=== PATIENT | male | born 1935 | race Caucasian/White ===

== ENCOUNTER → 2021-08-12 | Outpatient (CLI) | payer MEDICARE, OTHER ==
--- NOTE | 2021-08-12 12:24 | DIREP ---
PROCEDURE:XR ABDOMEN 2 VIEWS COMPARISON:None. INDICATIONS:K59.00 CONSTIPATION TECHNIQUE:Flat and upright views of the abdomen are provided. FINDINGS: BOWEL GAS PATTERN:No small bowel dilatation. CALCIFICATIONS:Bilateral flank calcifications. The largest on the right measures 1.5 x 1.4 cm. The largest on the left measures 1.5 x 0.9 cm. A 1.5 x 0.8 cm calcification is identified to the right of midline at the L4 vertebral level. Ureteral calculus could be considered. LUNG BASES:Clear. BONES:Lumbar dextroscoliosis. Degenerative change without evidence of acute osseus abnormality. OTHER:No additional findings. CONCLUSION: 1. Nonobstructive bowel-gas pattern. 2. Bilateral flank and lower abdominal calcifications, could indicate renal and ureteral calculi. Cross-sectional imaging is recommended for further characterization. Dictated by: Andrey Domínguez MD on 08/12/2021 at 11:21 AM
== END | disposition home or self-care (01) ==
LOC: RAD 11:02
PROVIDERS: ATTEND Nurse Practitioner Family
DX: K59.00 Constipation, unspecified (principal); M41.86 Other forms of scoliosis, lumbar region; M47.819 Spondylosis without myelopathy or radiculopathy, site unspecified
CPT/HCPCS: 74019

== ENCOUNTER → 2024-04-22 | Outpatient (CLI) | payer MEDICARE, OTHER ==
[2024-04-22 10:44] LABS: BASOPHIL % 0.1 % (0.2-1.2); EOSINOPHIL # 0.2 10^3/uL (0.0-0.2); HEMATOCRIT(ML) 48.7 % (37.0-53.0); HEMOGLOBIN 16.4 g/dL (13.9-16.3); LYMPHOCYTES # 1.86 10^3/uL1 (1.0-4.8); LYMPHOCYTES % 24.3 % (24.0-44.0); MEAN CORP HGB CONCENTRATION 33.7 g/dL (33-36.5); MEAN CORP VOLUME 92.1 fL (78-100); MONOCYTES # 0.6 10^3/uL (0.3-0.8); MONOCYTES % 8.2 % (5.0-12.0); NEUTROPHILS % 65.1 % (41.0-85.0); PLATELET COUNT 208 10^3/uL (150-400); RED BLOOD CELL 5.29 10^6/uL (4.50-5.90); RED CELL DISTRIBUTION WIDTH 12.9 % (11.5-14.5); WHITE BLOOD CELL 7.7 10^3/uL (4.5-11.0)
[2024-04-22 10:45] LABS: +ADD MANUAL DIFF(NO CHRG) NO
[2024-04-22 11:03] LABS: ALBUMIN(ML) 3.8 g/dL (3.4-5.0); ALBUMIN/GLOBULIN RATIO 1.085; CALCIUM 10.5 mg/dL (8.4-10.5); CARBON DIOXIDE 25.2 mmol/L (20.0-32); CREATININE SERUM 1.62 mg/dL (0.59-1.40); EST GFR, NON-AA 40.3 (>/=60); POTASSIUM 4.2 mmol/L (3.6-5.2)
[2024-04-22 11:12] LABS: BUN/CREATININE RATIO 12.96 (10.0-20.0)
== END | disposition home or self-care (01) ==
LOC: LAB 10:10
PROVIDERS: ATTEND Nurse Practitioner Family
DX: I10 Essential (primary) hypertension (principal); N40.0 Benign prostatic hyperplasia without lower urinary tract symptoms
CPT/HCPCS: 36415; 80053; 80061; 84153; 84439; 84443; 85025